=== PATIENT | male | born 1990 | race African-American/Black ===

== ENCOUNTER → 2016-09-05 | Outpatient (CLI) | payer OTHER ==
[~2016-09-05] MED LIST: NONE PER PT
== END ==
LOC: STAR 15:04
PROVIDERS: ATTEND Orthopaedic Surgery
DX: Z02.9 Encounter for administrative examinations, unspecified (principal)

== ENCOUNTER 2016-09-10 08:09 | Day surgery (SDC) | payer OTHER ==
[~2016-09-10] VITALS: Ht 175.3 cm; Wt 67.0 kg
[~2016-09-10 08:09] MED LIST changes: +KETAMINE 10 MG/ML, 20ML ONE; +LIDOCAINE 0.5%-EPI 1:200K, 50ML ONE; +ROPIvacaine/PF 0.5%, 20 ML ONE; +ROPIvacaine/PF 0.5%, 30 ML ONE
[2016-09-10] MEDS ORDERED: LACTATED RINGERS 1,000 ML IV SCH (08:31)
[2016-09-10] MEDS ORDERED: MIDAZOLAM 1 MG/ML, 2ML ONE (08:45)
[2016-09-10] MEDS ORDERED: FENTANYL PF 100 MCG/2ML ONE (08:45)
[2016-09-10 08:53] VITALS: BP 117/76
[2016-09-10] MEDS ORDERED: KETOROLAC 30 MG/1 ML ONE (09:22)
[2016-09-10] MEDS ORDERED: CEFAZOLIN 1,000 MG ONE (09:22)
[2016-09-10] MEDS ORDERED: ONDANSETRON 2MG/ML, 2ML ONE (09:22)
[2016-09-10] MEDS ORDERED: DEXAMETHASONE 4 MG/ML, 1ML ONE (09:22)
[2016-09-10] MEDS ORDERED: PROPOFOL 10 MG/ML, 20ML ONE (09:22)
[2016-09-10] MEDS ORDERED: PROMETHAZINE 25 MG/ML, 1ML IV PRN (10:00)
[2016-09-10] MEDS ORDERED: HYDROmorphone 1 MG/ML, 1ML IV PRN (10:00)
[2016-09-10] MEDS ORDERED: OXYcodone 5 MG/5 ML ORAL.SOL UDC PO PRN (10:00)
[2016-09-10] MEDS ORDERED: FENTANYL PF 100 MCG/2ML IV PRN (10:00)
[2016-09-10] MEDS ORDERED: ACETAMINOPHEN 325 MG TABLET PO PRN (10:00)
[2016-09-10] MEDS ORDERED: MEPERIDINE/PF 25MG/0.5ML IVPush PRN (10:00)
== END 2016-09-10 13:00 ==
LOC: OUT 08:09
PROVIDERS: ATTEND Orthopaedic Surgery
DX: S83.242A Other tear of medial meniscus, current injury, left knee, initial encounter (principal); S83.512A Sprain of anterior cruciate ligament of left knee, initial encounter; M94.262 Chondromalacia, left knee; X58.XXXA Exposure to other specified factors, initial encounter; Y93.9 Activity, unspecified; Y92.9 Unspecified place or not applicable; Y99.9 Unspecified external cause status
CPT/HCPCS: 29881; 29888; C1713; C1762; J0690; J1100; J1885; J2250; J2405; J2704; J2795; J3010; J7120